=== PATIENT | male | born 1980 | race American Indian/Alaskan Native ===

== ENCOUNTER 2016-12-23 13:26 | Emergency (ER) | payer SELFPAY ==
[2016-12-23 13:42] VITALS: BP 153/106
[2016-12-23 14:40] LABS: Basophils % (Auto) 0.4 % (0.0-1.8); Eosinophils % (Auto) 4.1 % (0.0-4.3); Hemoglobin 14.8 gm/dl (11.8-15.2); Mean Corpuscular HGB Conc 34 % (32-34); Mean Corpuscular Hemoglobin 29 pg (28-32); Mean Corpuscular Volume 85 fl (84-94); Platelet Count 292 K/mm3 (140-440); Red Blood Count 5.18 M/mm3 (3.65-5.03); Red Cell Distribution Width 13.7 % (13.2-15.2); White Blood Count 10.1 K/mm3 (4.5-11.0)
[2016-12-23 14:42] LABS: Anion Gap 16 mmol/L; Blood Urea Nitrogen 22 mg/dL (9-20); Calcium 9.3 mg/dL (8.4-10.2); Carbon Dioxide 27 mmol/L (22-30); Chloride 101.9 mmol/L (98-107); Glucose 96 mg/dL (75-100); Potassium 3.9 mmol/L (3.6-5.0); Sodium 141 mmol/L (137-145)
[2016-12-23 14:57] LABS: Creatine Kinase MB 3.2 ng/mL (0.0-4.0)
--- NOTE | 2016-12-23 15:58 | XRay Report ---
CHEST 2 VIEWS INDICATION: Dyspnea. COMPARISON: None similar at this institution. FINDINGS: PA and lateral chest radiographs demonstrate normal cardiomediastinal silhouette. Clear lungs. Intact bones. CONCLUSION: No acute disease in the chest. Thank you for the opportunity to participate in this patient's care.
[2016-12-23] MEDS ORDERED: DECADRON IM ONE (16:19)
--- NOTE | 2016-12-23 16:40 | Emergency Department Report ---
Entered by JOSE BRANTLEY, acting as scribe for CROW SCHWARTZ PA. 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 The episode lasted 10 minutes and has since resolved. Pt denies chest pain, n/v, fever, chills, WALKER, numbness or tingling. No additional Sx. MD Complaint: shortness of breath, chest pain (tightness diffusely) -: This afternoon Radiation: other (none) Severity: mild Pain Scale: 3 Quality: other (tightness) Consistency: intermittent (one episode lasting for about 10 minutes), now resolved Improves With: nothing Worsens With: nothing Known History Of: asthma (childhood but denies any episodes as an adult) Associated Symptoms: denies other symptoms Treatments Prior to Arrival: none - Related Data Home Oxygen Therapy: No Home Oxygen Amount: other (none) Previous Rx's Medication Instructions Recorded Last Taken Type ALBUTEROL Inhaler [ProAir HFA 2 puff IH QID PRN #1 pump 12/23/16 Unknown Rx Inhaler] Prednisone [predniSONE 5 mg (6-Day 5 mg PO .TAPER #1 tab.ds.pk 12/23/16 Unknown Rx Pack, 21 Tabs)] Allergies Allergy/AdvReac Type Severity Reaction Status Date / Time No Known Allergies Allergy Unverified 12/23/16 13:42 ED Review of Systems Comment: All other systems reviewed and negative Constitutional: denies: chills, fever Respiratory: shortness of breath. denies: cough Cardiovascular: denies: chest pain (tightness) Gastrointestinal: denies: abdominal pain, nausea, vomiting Neurological: denies: headache, weakness, numbness ED Past Medical Hx - Past Medical History Hx Asthma: Yes (as child) - Surgical History Past Surgical History?: No - Social History Smoking Status: Never Smoker Substance Use Type: None - Medications Home Medications: Home Medications Medication Instructions Recorded Confirmed Last Taken Type ALBUTEROL Inhaler [ProAir HFA 2 puff IH QID PRN #1 pump 12/23/16 Unknown Rx Inhaler] Prednisone [predniSONE 5 mg (6-Day 5 mg PO .TAPER #1 tab.ds.pk 12/23/16 Unknown Rx Pack, 21 Tabs)] ED Physical Exam - General Limitations: No Limitations - Other Other exam information: GENERAL: Patient is alert and oriented x 3. No apparent distress, normal gait, atraumatic. HEAD: Head is normocephalic and atraumatic. EYES: Extraocular movements are intact. Pupils are equal, round, and reactive to light and accommodation. BREAST: Symmetrical. Supple bilaterally, No Masses, lumps, lesions, ulcerations. LUNGS: Clear to auscultation. Non labor breathing. No intercostal retractions. Mild wheezing in bilateral lower lobes. No use of assessory muscles HEART: Regular rate and rhythm without murmur, rubs or gallops. No reproducible EXTREMITIES/MUSCULOSKELETAL: No cyanosis, clubbing, rash, lesions or edema. Full ROM bilaterally. UE/LE Pulses 2+ bilaterally. LE and UE 5+ strength bilaterally. Capillary refill 2+ bilaterally SKIN: Warm and dry. No lesions, ulceration or induration present NEUROLOGIC: No focal deficit., Cranial nerves II - XII are grossly intact. No loss of sensation. ED Course Vital Signs 12/23/16 13:39 Temperature 99 F Pulse Rate 76 Respiratory 20 Rate Blood Pressure 153/106 O2 Sat by Pulse 100 Oximetry ED Medical Decision Making - Lab Data Result diagrams: 12/23/16 14:21 12/23/16 14:21 - Radiology Data Radiology results: report reviewed, image reviewed Fluoro Time In Minutes: CHEST 2 VIEWS INDICATION: Dyspnea. COMPARISON: None similar at this institution. FINDINGS: PA and lateral chest radiographs demonstrate normal cardiomediastinal silhouette. Clear lungs. Intact bones. CONCLUSION: No acute disease in the chest. Thank you for the opportunity to participate in this patient's care. Transcribed By: RS Dictated By: ROSA GROVER MD Electronically Authenticated By: ROSA GROVER MD Signed Date/Time: 12/23/16 0820 - Medical Decision Making 36-year-old male presents to bronchospasm acute ED course: Patient received 60 mg of prednisone a day., CBC, EKG, BMP, cardiac enzymes all ordered. All labs within normal limits. Discussed findings with patient. Chest x-ray normal no acute cardiopulmonary processessee above Discussed with patient to follow up with PCP as referred, and to return to the ED if his symptoms return or worsen. Patient states understanding and will follow instructions. Vital signs stable, patient is in no acute distress. ED Disposition Clinical Impression: Bronchospasm, acute Disposition: DC-01 TO HOME OR SELFCARE Is pt being admited?: No Does the pt Need Aspirin: No Condition: Stable Instructions: Bronchospasm (ED), Exercise-Induced Asthma (ED), Asthma (ED) Additional Instructions: Use her inhaler as needed for shortness of breath Take her medication as prescribed. If symptoms worsen return to ED Prescriptions: ALBUTEROL Inhaler [ProAir HFA Inhaler] 2 puff IH QID PRN #1 pump PRN Reason: Shortness Of Breath Prednisone [predniSONE 5 mg (6-Day Pack, 21 Tabs)] 5 mg PO .TAPER #1 tab.ds.pk Referrals: PRIMARY CARE, [Primary Care Provider] - 3-[address] [facility] [Outside] - 3-5 Days [facility] [Outside] - 3-5 Days [facility] [Outside] - 3-5 Days Forms: Work/School Release Form(ED) Time of Disposition: 16:36 This documentation as recorded by the FERCHO dewitt RYAN,accurately reflects the service I personally performed and the decisions made by LANA morrison OYINLOLA A, PA.
== END 2016-12-23 17:31 | disposition home or self-care (01) ==
LOC: ED 13:26
DX: J45.909 Unspecified asthma, uncomplicated (principal)
CPT/HCPCS: 36415; 71020; 80048; 82550; 82553; 84484; 85025; 93005; 93010; 96372; 99283; J1100

== ENCOUNTER 2017-07-22 10:13 | Emergency (ER) | payer SELFPAY ==
[2017-07-22] MEDS ORDERED: MOTRIN PO ONE (13:19)
--- NOTE | 2017-07-22 13:26 | Emergency Department Report ---
ED Back Pain/Injury HPI - General Chief Complaint: Back Pain/Injury Stated Complaint: BACK PAIN Time Seen by Provider: 07/22/17 13:16 Source: patient Limitations: No Limitations - History of Present Illness Initial Comments: This is a 36-year-old male nontoxic, well nourished in appearance, no acute signs of distress presents to the ED with c/o of slight discomfort in left lower back. Patient describe pain as aching with level of 3 out of 10. Patient denies any trauma. Patient states this morning he woke up with slight discomfort but denies any bladder or bowel stability. Patient denies any fever , chills, nausea, vomiting, abdominal pain, dysuria, polyuria, hematuria. No headache, stiff neck numbness or tingling. Patient denies any radiation of pain. Denies any allergies or past medical history. MD Complaint: back pain -: days(s) (1) Similar Symptoms Previously: No Place: home Radiation: none Severity: mild Severity scale (0 -10): 3 Quality: aching Consistency: constant Improves With: none Worsens With: none Associated Symptoms: denies other symptoms. denies: confusion, weakness, chest pain, numbness, difficulty walking, cough, difficulty urinating, diaphoresis, incontinence, fever/chills, constipation, headaches, abdominal pain, loss of appetite, malaise, nausea/vomiting, rash, seizure, shortness of breath, syncope - Related Data Previous Rx's Medication Instructions Recorded Last Taken Type ALBUTEROL Inhaler [ProAir HFA 2 puff IH QID PRN #1 pump 12/23/16 Unknown Rx Inhaler] Prednisone [predniSONE 5 mg (6-Day 5 mg PO .TAPER #1 tab.ds.pk 12/23/16 Unknown Rx Pack, 21 Tabs)] Cyclobenzaprine [Flexeril] 10 mg PO QHS PRN #7 tablet 07/22/17 Unknown Rx Ibuprofen [Motrin] 600 mg PO Q8H PRN #30 tablet 07/22/17 Unknown Rx Allergies Allergy/AdvReac Type Severity Reaction Status Date / Time No Known Allergies Allergy Verified 07/22/17 10:35 ED Review of Systems ROS: Stated complaint: BACK PAIN Other details as noted in HPI Constitutional: denies: chills, fever Eyes: denies: eye pain, eye discharge, vision change ENT: denies: ear pain, throat pain Respiratory: denies: cough, shortness of breath, wheezing Cardiovascular: denies: chest pain, palpitations Endocrine: no symptoms reported Gastrointestinal: denies: abdominal pain, nausea, diarrhea Genitourinary: denies: urgency, dysuria Musculoskeletal: back pain. denies: joint swelling, arthralgia Skin: denies: rash, lesions Neurological: denies: headache, weakness, paresthesias Psychiatric: denies: anxiety, depression Hematological/Lymphatic: denies: easy bleeding, easy bruising ED Past Medical Hx - Past Medical History Hx Asthma: Yes (as child) - Social History Smoking Status: Never Smoker Substance Use Type: None - Medications Home Medications: Home Medications Medication Instructions Recorded Confirmed Last Taken Type ALBUTEROL Inhaler [ProAir HFA 2 puff IH QID PRN #1 pump 12/23/16 Unknown Rx Inhaler] Prednisone [predniSONE 5 mg (6-Day 5 mg PO .TAPER #1 tab.ds.pk 12/23/16 Unknown Rx Pack, 21 Tabs)] Cyclobenzaprine [Flexeril] 10 mg PO QHS PRN #7 tablet 07/22/17 Unknown Rx Ibuprofen [Motrin] 600 mg PO Q8H PRN #30 tablet 07/22/17 Unknown Rx ED Physical Exam - General Limitations: No Limitations General appearance: alert, in no apparent distress - Head Head exam: Present: atraumatic, normocephalic - Eye Eye exam: Present: normal appearance, PERRL, EOMI. Absent: scleral icterus, conjunctival injection, nystagmus, periorbital swelling, periorbital tenderness Pupils: Present: normal accommodation - ENT ENT exam: Present: normal exam, normal orophraynx, mucous membranes moist, TM's normal bilaterally, normal external ear exam - Neck Neck exam: Present: normal inspection, full ROM. Absent: tenderness, meningismus, lymphadenopathy, thyromegaly - Respiratory Respiratory exam: Present: normal lung sounds bilaterally. Absent: respiratory distress, wheezes, rales, rhonchi, stridor, chest wall tenderness, accessory muscle use, decreased breath sounds, prolonged expiratory - Cardiovascular Cardiovascular Exam: Present: regular rate, normal rhythm, normal heart sounds. Absent: bradycardia, tachycardia, irregular rhythm, systolic murmur, diastolic murmur, rubs, gallop - GI/Abdominal GI/Abdominal exam: Present: soft, normal bowel sounds. Absent: distended, tenderness, guarding, rebound, rigid, diminished bowel sounds - Rectal Rectal exam: Present: deferred - Extremities Exam Extremities exam: Present: normal inspection, full ROM, normal capillary refill. Absent: tenderness, pedal edema, joint swelling, calf tenderness - Back Exam Back exam: Present: normal inspection, full ROM, paraspinal tenderness (right lumbar region). Absent: tenderness, CVA tenderness (R), CVA tenderness (L), muscle spasm, vertebral tenderness, rash noted - Expanded Back Exam Expanded Back exam: Absent: saddle anesthesia Back exam: Negative Straight Leg Raising: Left, Right - Neurological Exam Neurological exam: Present: alert, oriented X3, CN II-XII intact, normal gait, reflexes normal - Psychiatric Psychiatric exam: Present: normal affect, normal mood - Skin Skin exam: Present: warm, dry, intact, normal color. Absent: rash ED Course Vital Signs 07/22/17 10:35 Temperature 98.5 F Pulse Rate 76 Respiratory 16 Rate Blood Pressure 150/98 O2 Sat by Pulse 98 Oximetry - Reevaluation(s) Reevaluation #1: 07/22/17 13:27 Patient is speaking in full sentences with no signs of distress noted. ED Medical Decision Making - Medical Decision Making This is a 36-year-old male that presents with low back strain. Patient is stable and was examined by me. Patient received Motrin 800 mg by mouth in the ED which patient stated his symptoms is improving and is subsided. Patient received Flexeril at discharge and was instructed not to operate any machinery while taking Flexeril due to drowsiness. Patient was instructed Follow-up with a primary care doctor in 3-5 days or if symptoms worsen and continue return to emergency room as soon as possible. At time time of discharge, the patient does not seem toxic or ill in appearance. No acute signs of distress noted. Patient agrees to discharge treatment plan of care. No further questions noted by the patient. Critical care attestation.: If time is entered above; I have spent that time in minutes in the direct care of this critically ill patient, excluding procedure time. ED Disposition Clinical Impression: Low back strain Qualifiers: Encounter type: initial encounter Qualified Code(s): S39.012A - Strain of muscle, fascia and tendon of lower back, initial encounter Disposition: TO HOME OR SELFCARE Is pt being admited?: No Does the pt Need Aspirin: No Condition: Stable Instructions: Low Back Strain (ED), Cyclobenzaprine (By mouth), Ibuprofen (By mouth) Additional Instructions: Follow-up with your primary care doctor in 3-5 days or if symptoms worsen such as bladder or bowel stability, chest pain, short of breath, numbness or tingling sensation in extremities, headache, dizziness, visual changes, nausea vomiting, or abdominal pain, return back to emergency room as was possible. Take ibuprofen and Flexeril as prescribed. Do not operate heavy machinery while taking Flexeril due to sedation Prescriptions: Cyclobenzaprine [Flexeril] 10 mg PO QHS PRN #7 tablet PRN Reason: Muscle Spasm Ibuprofen [Motrin] 600 mg PO Q8H PRN #30 tablet PRN Reason: Pain Referrals: PRIMARY CAREMD [Primary Care Provider] - 3-5 Days KARINA TURPIN MD [Staff Physician] - 3-5 Days [facility] [Outside] - 3-5 Days [facility] [Outside] - 3-5 Days Forms: Work/School Release Form(ED)
[2017-07-22 13:45] VITALS: BP 133/95
== END 2017-07-22 13:49 | disposition home or self-care (01) ==
LOC: ED 10:13
DX: S39.012A Strain of muscle, fascia and tendon of lower back, initial encounter (principal); J45.909 Unspecified asthma, uncomplicated; X58.XXXA Exposure to other specified factors, initial encounter; Y93.89 Activity, other specified; Y99.8 Other external cause status; Y92.009 Unspecified place in unspecified non-institutional (private) residence as the place of occurrence of the external cause
CPT/HCPCS: 99282